=== PATIENT | female | born 1995 | race Caucasian/White ===

== ENCOUNTER → 2018-05-03 | Outpatient (CLI) | payer OTHER | LOC: FIMAGING 14:21 | PROVIDERS: ATTEND Physician Assistant Medical | DX: R92.8 Other abnormal and inconclusive findings on diagnostic imaging of breast (principal) ==

== ENCOUNTER 2019-01-27 19:40 | Emergency (ER) | payer OTHER | END 2019-01-27 21:09 | disposition home or self-care (01) ==